=== PATIENT | male | born 1950 | race Caucasian/White ===

== ENCOUNTER → 2018-05-11 | Outpatient (CLI) | payer OTHER ==
[~2018-05-11] MED LIST: ALBU90OI INH; AMLO10 PO; Aspirin EC81 MG; BENZ100A PO; CALC.25 PO; CLOP75 PO; DULERA 200 MCG/13 GM INH; FERR325 PO; FEXPSEER; FLUSAL2505; FLUSAL2505 INH; FLUSAL5005; FLUT.05NI; Flovent Disku100 MCG; GLUC500 PO; K-Phos Origina500 MG PO; LOSA25 PO; LOSA50 PO; METO50ER PO; MONT10T PO; NAPR500 PO; OMEP10ER PO; OMEP20ER; OXYACE5T PO; PRED20 PO; RANI150 PO; RXOXYACE PO; SIMV40 PO; TAMS.4ER PO; Tussionex Penn480 ML PO; VITS; Vitamin D2000 UNIT PO
== END | disposition home or self-care (01) ==
LOC: LAB SHORT 06:30 → LAB 06:30
DX: J84.9 Interstitial pulmonary disease, unspecified (principal); R09.02 Hypoxemia
CPT/HCPCS: 87177; 87209

== ENCOUNTER 2021-01-17 11:11 | Day surgery (SDC) | payer OTHER ==
[~2021-01-17] VITALS: Ht 177.8 cm; Wt 101.9 kg
== END 2021-01-17 12:42 | disposition home or self-care (01) ==
LOC: ORSCSDS 11:11
PROVIDERS: Internal Medicine Gastroenterology
PROC: 0DBP8ZX Excision of Rectum, Via Natural or Artificial Opening Endoscopic, Diagnostic (ICD-10-PCS; principal; 2021-01-17 12:30)
DX: Z12.11 Encounter for screening for malignant neoplasm of colon (principal); Z86.010 Personal history of colon polyps; D12.8 Benign neoplasm of rectum; I10 Essential (primary) hypertension; G47.33 Obstructive sleep apnea (adult) (pediatric); J45.909 Unspecified asthma, uncomplicated; I25.2 Old myocardial infarction; Z79.899 Other long term (current) drug therapy; Z79.82 Long term (current) use of aspirin
CPT/HCPCS: 88305; J2704; J7120

== ENCOUNTER 2022-02-24 05:57 | Day surgery (SDC) | payer OTHER ==
[~2022-02-24] VITALS: Ht 177.8 cm; Wt 104.8 kg
[~2022-02-24 05:57] MED LIST changes: -Aspirin EC81 MG; +Aspirin EC81 MG PO
[2022-02-24] MEDS ORDERED: AMLO10 PO (06:44)
[2022-02-24] MEDS ORDERED: PANT20 PO (06:45)
[2022-02-24] MEDS ORDERED: MAGNESIUM GLU27.5 M1 PO (07:03)
[2022-02-24] MEDS ORDERED: NITR.4SL SL (07:03)
[2022-02-24] MEDS ORDERED: ACIDOPHILUS1 EAC3 PO (07:04)
[2022-02-24] MEDS ORDERED: CALCIUM 500 MG1 EAC2 PO (07:05)
[2022-02-24] MEDS ORDERED: IRON18 MG PO (07:05)
[2022-02-24] MEDS ORDERED: VITAMIN D325 MC3 PO (07:06)
--- NOTE | 2022-02-24 07:49 | NUR ---
History, Chart, Medications and Allergies reviewed before start of procedure. Patient confirms NPO status and agrees with scheduled surgery. PT BELONGINGS PLACED UNDERNEATH [facility] FOR SAFEKEEPING.
--- NOTE | 2022-02-24 17:46 | NUR ---
SHIFT SUMMARY PT HAS DONE WELL POST OP. WAS DROWSY INITIALLY BUT WOKE NICELY AFTER A NAP. EATING, DRINKING, VOIDING. WORKED w/ THERAPY. UP TO CHAIR FOR DINNER. PAIN WELL MANAGED.
--- NOTE | 2022-02-25 04:36 | NUR ---
SHIFT SUMMARY: A&OX4. PT IS VERY PLEASANT. C/O VERY MINIMAL PAIN T/O THE SHIFT THAT WAS WELL MANAGED PER EMAR ORDERS. EATING, DRINKING, VOIDING. POLAR PACK REMAINS IN PLACE ON LEFT KNEE. AMBULATING USING FWW AND GAIT BELT. TOLERATING WELL. X1 AQUACEL REMAINS IN PLACE ON LEFT KNEE WITH PATT WRAP. PLANS TO WORK WITH PT THIS AM AND POSSIBLY DISCHARGE HOME TODAY.
[2022-02-25 04:57] LABS: BASOPHILS ABSOLUTE AUTO 0.01 K/mm3 (0.00-0.23); BASOPHILS PERCENT AUTO 0 % (0-2); EOSINOPHILS PERCENT AUTO 0 % (0-6); Hematocrit 38.6 % (37.0-53.0); Hemoglobin 12.9 g/dL (13.5-17.5); IMMATURE GRAN ABSOLUTE AUTO 0.04 K/mm3 (0.00-0.10); IMMATURE GRAN PERCENT AUTO 0 % (0-1); LYMPHOCYTES ABSOLUTE AUTO 0.71 K/mm3 (0.84-5.20); LYMPHOCYTES PERCENT AUTO 7 % (21-46); MONOCYTES ABSOLUTE AUTO 0.69 K/mm3 (0.16-1.47); MONOCYTES PERCENT AUTO 7 % (4-13); Mean Corpuscular HGB 30.6 pg (26.0-34.0); Mean Corpuscular HGB Conc 33.4 g/dL (31.5-36.5); Mean Corpuscular Volume 92 fL (80-100); Mean Platelet Volume 8.9 fL (9.1-12.4); NEUTROPHILS ABSOLUTE AUTO 9.23 K/mm3 (1.96-9.15); NEUTROPHILS PERCENT AUTO 86 % (41-73); Platelet Count 195 K/mm3 (150-400); Red Blood Cell Count 4.21 M/mm3 (4.30-5.90); White Blood Cell Count 10.68 K/mm3 (4.00-11.30)
[2022-02-25 05:14] LABS: Bun/Creatinine Ratio 26.5 (12.0-20.0); Calcium, Blood 8.1 mg/dL (8.5-10.1); Creatinine, Blood 0.95 mg/dL (0.60-1.20); Potassium, Blood 4.4 mmol/L (3.5-5.5)
--- NOTE | 2022-02-25 09:45 | NUR ---
DISCHARGE PT AND SPOUSE PROVIDED WITH WRITTEN AND VERBAL DISCHARGE INSTRUCTIONS; THEY REPORTED UNDERSTANDING. CLEAN DRESSINGS PROVIDED. PT'S SPOUSE VERBALIZED THAT SCRIPTS HAD ALREADY BEEN OBTAINED. VSS AT TIME OF DISCHARGE. PT ABLE TO TOLERATE PO, PASS FLATUS, VOID AND CLEARED THERAPY PRIOR TO DISCHARGE. PT ESCORTED OUT IN WHEELCHAIR AT APPROXIMATELY 0945.
== END 2022-02-25 09:40 | disposition home or self-care (01) ==
LOC: ORSCMMR 05:57 → ORD 07:30 → ORSCMMR 08:15 → SURS 11:22 → ORSCMMR 02-25 09:40
PROVIDERS: Orthopaedic Surgery
PROC: 8E0Y0CZ Robotic Assisted Procedure of Lower Extremity, Open Approach (ICD-10-PCS; 2022-02-24)
PROC: 0SRD0JA Replacement of Left Knee Joint with Synthetic Substitute, Uncemented, Open Approach (ICD-10-PCS; principal; 2022-02-24 08:15)
DX: M17.12 Unilateral primary osteoarthritis, left knee (principal); J45.909 Unspecified asthma, uncomplicated; I10 Essential (primary) hypertension; E78.5 Hyperlipidemia, unspecified; I25.2 Old myocardial infarction; Z79.899 Other long term (current) drug therapy
CPT/HCPCS: 27447; 20985; S2900; 36415; 73560-LT; 80048; 85025; 97110; 97116; 97162; 97530; A9270; C1776; C9113; J0171; J0690; J0735; J1100; J1885; J2250; J2405; J2704; J2795; J3010; J7120

== ENCOUNTER 2022-03-21 07:02 | Emergency (ER) | payer OTHER ==
[~2022-03-21] VITALS: Ht 177.8 cm; Wt 102.1 kg
[~2022-03-21 07:02] MED LIST changes: +ACIDOPHILUS1 EAC3 PO; +CALCIUM 500 MG1 EAC2 PO; +IRON18 MG PO; +MAGNESIUM GLU27.5 M1 PO; +NITR.4SL SL; +PANT20 PO; +VITAMIN D325 MC3 PO
[2022-03-21] MEDS ORDERED: Prednisone20 MG PO (09:33)
[2022-03-21] MEDS ORDERED: Cleocin HCl150 MG PO (09:33)
[2022-03-21] MEDS ORDERED: CEPH500 PO (09:33)
== END 2022-03-21 10:10 | disposition home or self-care (01) ==
LOC: ER 07:02
DX: L27.1 Localized skin eruption due to drugs and medicaments taken internally (principal); T36.8X5A Adverse effect of other systemic antibiotics, initial encounter; I25.2 Old myocardial infarction; I10 Essential (primary) hypertension; Z79.899 Other long term (current) drug therapy; Z79.82 Long term (current) use of aspirin
CPT/HCPCS: A9270; J1100

== ENCOUNTER 2025-02-16 18:13 | Emergency (ER) | payer OTHER ==
[~2025-02-16] VITALS: Ht 177.8 cm; Wt 110.0 kg
[~2025-02-16 18:13] MED LIST changes: +CEPH500 PO; +Cleocin HCl150 MG PO; +Prednisone20 MG PO
[2025-02-16 18:46] LABS: BASOPHILS ABSOLUTE AUTO 0.06 K/mm3 (0.00-0.23); BASOPHILS PERCENT AUTO 1 % (0-2); EOSINOPHILS ABSOLUTE AUTO 0.07 K/mm3 (0.00-0.68); EOSINOPHILS PERCENT AUTO 1 % (0-6); Hematocrit 38.9 % (37.0-53.0); Hemoglobin 12.6 g/dL (13.5-17.5); IMMATURE GRAN ABSOLUTE AUTO 0.24 K/mm3 (0.00-0.10); IMMATURE GRAN PERCENT AUTO 2 % (0-1); LYMPHOCYTES ABSOLUTE AUTO 1.47 K/mm3 (0.84-5.20); LYMPHOCYTES PERCENT AUTO 14 % (21-46); MONOCYTES ABSOLUTE AUTO 0.84 K/mm3 (0.16-1.47); MONOCYTES PERCENT AUTO 8 % (4-13); Mean Corpuscular HGB Conc 32.4 g/dL (31.5-36.5); Mean Corpuscular Volume 101 fL (80-100); NEUTROPHILS ABSOLUTE AUTO 7.83 K/mm3 (1.96-9.15); NEUTROPHILS PERCENT AUTO 74 % (41-73); NRBC ABSOLUTE 0.00 K/mm3 (0.00-0.02); NRBC Auto 0.0 /100 WBC (0.0-0.2); Platelet Count 220 K/mm3 (150-400); RDW Coefficient Variation 13.3 % (11.7-14.2); RDW Standard Deviation 49.2 fL (35.1-46.3)
[2025-02-16 18:59] LABS: Prothrombin Time Results 10.5 Sec (9.7-11.5)
[2025-02-16 19:16] LABS: Alanine Aminotransfer (ALT/SGP 32.0 U/L (12-78); Albumin, Blood 3.6 g/dL (3.4-5.0); Albumin/Globulin Ratio 1.1 (0.8-1.8); Anion Gap 8.0 mmol/L (3-11); Aspartate Aminotrans (AST/SGOT 22.0 U/L (12-37); Bilirubin, Total 0.5 mg/dL (0.1-1.0); Blood Urea Nitrogen 26.0 mg/dL (8-24); CO2, Blood 28.0 mmol/L (21-32); Calcium, Blood 8.7 mg/dL (8.5-10.1); Chloride, Blood 106.0 mmol/L (98-108); Creatinine, Blood 1.01 mg/dL (0.60-1.20); Globulin, Blood 3.3 g/dL (2.2-4.0); Glucose, Blood 122.0 mg/dL (70-99); Potassium, Blood 4.3 mmol/L (3.5-5.5); Sodium, Blood 138.0 mmol/L (136-145); Total Protein, Blood 6.9 g/dL (6.4-8.2)
[2025-02-16 21:30] VITALS: BP 147/70
[2025-02-16] MEDS ORDERED: ELIQUIS5 M2 PO (21:32)
== END 2025-02-16 21:54 | disposition home or self-care (01) ==
LOC: ER 18:13
PROVIDERS: Emergency Medicine
DX: I82.441 Acute embolism and thrombosis of right tibial vein (principal); J45.909 Unspecified asthma, uncomplicated; I10 Essential (primary) hypertension; Z59.89 Other problems related to housing and economic circumstances; Z88.2 Allergy status to sulfonamides; Z79.2 Long term (current) use of antibiotics; Z79.899 Other long term (current) drug therapy; Z79.82 Long term (current) use of aspirin
CPT/HCPCS: 80053; 85025; 85610; 93970; 99283-25; A9270